=== PATIENT | female | born 1970 | race Caucasian/White ===

== ENCOUNTER 2020-07-21 11:31 | Outpatient (CLI) | payer SELFPAY ==
[2020-07-21 12:48] LABS: Prealbumin 22.2 mg/dL (17.6-36.0)
[2020-07-21 13:13] LABS: Iron 166 ug/dL (37-170)
[2020-07-25 11:53] LABS: Vitamin B1 12 nmol/L (8-30)
== END 2020-07-21 11:32 | disposition home or self-care (01) ==
LOC: ANHLAB 11:33
PROVIDERS: PCP Family Medicine; Visit Provider Surgery Plastic and Reconstructive Surgery
DX: Z98.84 Bariatric surgery status (principal)
CPT/HCPCS: 36415; 83540; 84134; 84425

== ENCOUNTER → 2020-08-09 00:08 | Outpatient (CLI) | payer OTHER, SELFPAY ==
[2020-08-09 17:56] LABS: SARS-CoV-2 RNA PCR Negative
== END ==
PROVIDERS: PCP Family Medicine; Visit Provider Surgery Plastic and Reconstructive Surgery
DX: Z01.812 Encounter for preprocedural laboratory examination (principal); Z20.822 Contact with and (suspected) exposure to COVID-19
CPT/HCPCS: C9803; U0003; U0005

== ENCOUNTER 2020-08-12 01:42 | Day surgery (SDC) | payer OTHER, SELFPAY ==
[2020-08-01 11:55] VITALS: BMI 34.2
--- NOTE | 2020-08-11 12:44 | WPDANESEPPF ---
Anes - Initial Pre Proc Eval Procedure: Operation Date: 08/12/20 07:30 Proposed Procedures p Bilateral Breast Reduction With Galaflex - Dreek Moss MD s Removal Bilateral Breast Implants - Derek Moss MD Date/Time: 08/11/20 12:44 Surgeon: Derek Moss MD Pre Op Diagnosis: Hx of breast Augmention Patient Data Age: 50 Gender: F Height: 1.6 m Weight: 87.54 kg Allergies Allergy/AdvReac Type Severity Reaction Status Date / Time amoxicillin AdvReac Mild Other Verified 08/12/20 06:14 Home Medications Medication Instructions Recorded Confirmed Type biotin 10,000 mcg capsule 10,000 mcg PO DAILY 05/12/20 08/12/20 History fluoxetine 40 mg capsule 40 mg PO DAILY 05/12/20 08/12/20 History iron 18 mg tablet 18 mg PO DAILY 05/12/20 08/12/20 History multivitamin 1 tablet PO DAILY 05/12/20 08/12/20 History zinc 50 mg tablet 50 mg PO DAILY 05/12/20 08/12/20 History docusate sodium 100 mg capsule 100 mg PO DAILY #14 cap 07/21/20 08/01/20 Rx ondansetron HCl 4 mg tablet 4 mg PO Q8H #21 tablet 07/21/20 08/01/20 Rx hydrocodone 5 mg-acetaminophen 325 1 tablet PO Q6H PRN #15 tablet 07/22/20 08/01/20 Rx mg tablet Patient hx anesthesia problems: none Family hx anesthesia problems: none PMFSH Past Medical History Medical History (Updated 08/11/20 @ 12:45 by Andrae Ramsey MD) Back pain Obesity Surgical History Surgical History History of abdominoplasty History of breast implant History of gastric bypass History of microdiscectomy Hx of LASIK Family History Family History Grandparent Hypertension Cerebrovascular accident Carcinoma of colon Family history of malignant neoplasm of breast Family history of heart disease in male family member before age 55 Diabetes mellitus Father Family history of diabetes mellitus in first degree relative Social History Social History Smoking packs per day: 0.75 Smoking cigarettes per day: 15.0 Years smoked: 3 Smoking pack-years: 2.25 Smoking status: Former smoker Smoking end date: 02/29/12 Alcohol intake: current Alcohol use details: 2/MONTH Substance use: never Substance use type: does not use Living arrangements: with family Spiritual care concerns: No Anes - Eval Final PreProcedure Day of Procedure 08/11/20 12:44 Patient weight: overweight Heart: regular rate and rhythm Lungs: clear to auscultation and normal air movement Airway: Mallampati scale class II Neurological: alert and oriented Last oral intake: >/= 8 hours ASA classification: II Emergent: no Anesthetic plan: proceed Anesthesia type and monitoring: general LMA Informed Consent: The patient's anesthetic plan and its attendant risks and benefits were discussed with the patient/family/POA. Questions were solicited and answers provided to the satisfaction of the patient/family/POA.
[2020-08-12] VITALS (13 sets, daily range): BP systolic 98–132; BP diastolic 64–71; PULSE 57–85; RESP 10–20; TEMP 36.3–36.5; O2SAT 90–100
[2020-08-12 06:28] LABS: Urine Cotinine NEGATIVE
[2020-08-12] MEDS: LACTATED RINGERS 1,000 ML 30 ML IV CONT ×3 (06:35→11:58)
--- NOTE | 2020-08-12 06:53 | WPDHPUPDATE1 ---
History and Physical Update Update Date/Time: 08/12/20 06:53 History and Physical has been reviewed, including an updated exam of the patient. There are NO changes in the patient's condition. Risks, benefits, and alternatives have been discussed and questions answered. Patient agrees to proceed with procedure.
[2020-08-12] MEDS: SCOPOLAMINE 1.5 MG PATCH TRANSDERM (07:11)
--- NOTE | 2020-08-12 07:13 | W.PM.PROC2 ---
Procedure Note - Detailed Date of Procedure 08/12/20 Pre-op Diagnosis Hx of breast Augmention Post-op Diagnosis same Procedure Performed 1. Removal bilateral breast implants. 2. Bilateral breast reduction with extended lateral scar. 3. Galaflex placement. Surgeon Derek Moss MD Anesthesia general Findings Inverted T Superior medial pedicle Extended lateral breast tissue removal Tissue removed: Right - 126.3 grams Left - 127.1 grams Previous implants smooth saline. Description of Procedure She is here today for the above. Previously and again today the risks, benefits, alternatives were discussed in extensive detail. I wanted her to be very realistic about the risks involved as well as expectations. We discussed aftercare and what to monitor for. She understands we can never guarantee final breast size and there will always be asymmetry. I was very upfront and honest about the risks of sensation change and even nipple loss (). Made sure answered all of her questions to her satisfaction today and consent was obtained. She was marked in the preoperative holding area with their verification. The patient was taken to the operating room placed supine on the operating table. Anesthesia was provided by anesthesiology. She was prepped and draped in a standard sterile fashion. A surgical time-out was taken. Stab incisions were made and I tumessed with a tumescent solution superficially. I tailor tacked the breast into position. Her goal was 10-20% decrease in breast size. She was placed in a sitting position. I marked out the nipple-areolar complex based on preoperative markings, intraoperative observations and measurements which were in full agreement. This was 42 mm. She was then placed supine. I marked out the nipple-areolar complex at 42 mm. I then de-epithelialized the pedicle. The pedicle was well left well more than 2 cm in thickness. I then removed the inferior portion of the breast as well as the central keel to get shape based on preoperative planning. During this portion the implant was identified and removed. I copiously irrigated with saline solution and verified a strict hemostasis. 15 mm Law drain was placed and sutured into place with 3-0 nylon. I reapproximated the the deep tissue using a 2-0 PDS. Medial and lateral flaps were elevated and galaflex was inset with 2-0 Vicryl. I then proceeded with closure along the IMF and vertically with 2-0 PDS. I tailor tacked the breast into place with domenica. In order to maximize the contour used a 4 mm basket cannula based on the principles S.A.F.E. technique. Nipple-areolar complex was inset with 3-0 Monocryl. I closed the vertical incision with 3-0 Monocryl in the IMF with 3-0 stratafix. Then everything was closed using a running subcuticular 4-0 Monocryl followed by Steri-Strips. A dressing was placed followed by surgical bra. Patient was awoke and taken to PACU without difficulty. All instrument sponge counts were correct at the end of the case. Estimated Blood Loss 30 Drains Yes (Bilateral 15 mm Law) Packing No Pathology yes Complications No immediate complications Condition stable Disposition PACU
[2020-08-12] MEDS: ceFAZolin 2 GM/D5W 50 ML 2 GM/50 ML BAG IVPB (07:28)
[2020-08-12] MEDS: TRANEXAMIC ACID 1,000MG/ISO100 1,000 MG/100 ML BAG 200 MG IVPB (07:39)
[2020-08-12] MEDS: LACTATED RINGERS IRRIG 1,000 ML, LIDOCAINE HCL 1% LOCAL INJ 50 ML, EPINEPHrine HCL INJ ... INFILTRATE (08:19)
[2020-08-12] MEDS: fentaNYL CITRATE INJ (*CRX) 100 MCG/2 ML VIAL 25 MCG IV PUSH ×7 (11:36→12:47)
[2020-08-12] MEDS: HYDROmorphone HCL INJ (*CRX) 1 MG/ML SYR 0.25 MG IV PUSH (13:16)
[2020-08-12] MEDS: oxyCODONE HCL (*CRX) 5 MG TAB IR PO (14:01)
== END 2020-08-12 14:45 | disposition home or self-care (01) ==
PROVIDERS: PCP Family Medicine; Visit Provider Surgery Plastic and Reconstructive Surgery
PROC: 0HBV0ZZ Excision of Bilateral Breast, Open Approach (ICD-10-PCS; CPT 19318; principal; 2020-08-12 07:30)
PROC: 0HPT0JZ Removal of Synthetic Substitute from Right Breast, Open Approach (ICD-10-PCS; CPT 19318; 2020-08-12 07:30)
DX: Z45.812 Encounter for adjustment or removal of left breast implant (principal); Z45.811 Encounter for adjustment or removal of right breast implant; M54.9 Dorsalgia, unspecified; Z98.84 Bariatric surgery status; Z87.891 Personal history of nicotine dependence; Z79.891 Long term (current) use of opiate analgesic
CPT/HCPCS: 19318; 15777 ×2; 80307; 88305; A9270; J0171; J0690; J1100; J1170; J1200; J1580; J2250; J2405; J2704; J3010; J7120